=== PATIENT | female | born 1945 | race Caucasian/White ===

== ENCOUNTER 2017-04-08 11:07 | Emergency (ER) | payer OTHER ==
[~2017-04-08] VITALS: Ht 170.2 cm; Wt 69.4 kg
[~2017-04-08 11:07] MED LIST: ASPIRIN81 M2 PO; CALCIUM + D SO1 EACH PO; CRANBERRY200 MG PO; LIPITOR20 MG PO; MULTIVITAMIN1 EAC2 PO; PRED FORTE100 DROP/5 RIGHT EYE
[2017-04-08 13:58] LABS: HEMATOCRIT 39.4 % (36.0-46.0); HEMOGLOBIN 13.6 G/DL (11.9-15.5); MCH 31.3 PG (29.0-34.0); MCHC 34.5 G/DL (30.0-36.0); MCV 90.8 FL (83-99); PLATELET COUNT 196 K/uL (156-360); RBC DIS.WIDTH-CV 11.6 % (11.8-14.6); RBC DIS.WIDTH-SD 38.6 % (39-53); RED BLOOD COUNT 4.34 M/uL (3.80-5.20)
[2017-04-08 14:06] LABS: CHLORIDE 100 mEq/L (99-109); POTASSIUM 4.3 mEq/L (3.7-5.4); SODIUM 134 mEq/L (136-147)
[2017-04-08 14:08] LABS: GLUCOSE 193 mg/dL (70-99)
[2017-04-08 14:12] LABS: CREATININE 0.8 mg/dL (0.6-1.3); GFR ESTIMATE (CALCULATED) > 59 mL/min/
[2017-04-08 14:13] LABS: UREA NITROGEN (BUN) 23 mg/dL (9-23)
[2017-04-08 14:18] LABS: TROP-I INTERPRETATION NEGATIVE; TROPONIN-I < 0.01 ng/mL (0.0-0.30)
[2017-04-08] MEDS ORDERED: ERYTHROMYC1 APPLICAT BOTH EYES (16:03)
[2017-04-08] MEDS ORDERED: VALACYCLOVIR1000 MG PO (16:03)
[2017-04-08 16:20] VITALS: BP 106/56
== END 2017-04-08 16:21 | disposition home or self-care (01) ==
LOC: EME 11:07
PROVIDERS: Physician Assistant Medical
DX: B02.9 Zoster without complications (principal); B00.52 Herpesviral keratitis; R51 Headache; R11.0 Nausea; E78.5 Hyperlipidemia, unspecified; Z79.82 Long term (current) use of aspirin; Z94.7 Corneal transplant status
CPT/HCPCS: 80048; 84484; 85027; 93005; 99281; 99285